=== PATIENT | female | born 2005 | race Caucasian/White ===

== ENCOUNTER 2025-07-16 17:04 | Emergency (ER) | payer SELFPAY ==
[2025-07-16 17:08] VITALS: BP 101/69; PULSE 109; TEMP 37.7; O2SAT 99; BMI 21.6
--- NOTE | 2025-07-16 17:29 | ED.GENADUL1 ---
HPI HPI - General Adult General Chief complaint: Abdominal Pain Stated complaint: Abdominal pain Time Seen by Provider: 07/16/25 17:12 Source: patient Mode of arrival: walk-in Limitations: no limitations History of Present Illness HPI narrative: Patient is a 20-year-old female that presents to the emergency department with complaints of bilateral anterior groin/thigh pain that started today. She denies any trauma. The pain has been constant and she does report some chills at home. She has also had upper respiratory symptoms that started yesterday including sore throat, cough, nasal congestion but denies nausea, vomiting, or diarrhea.. She notes that she has had a right inguinal hernia since she was young that has recently started to be painful. She did feel some pain come from her back to the front of her thighs once today. She denies history of back issues, surgery, or kidney stones. She denies any urinary symptoms including dysuria, frequency, urgency, or retention. She is unsure when her last menstrual cycle was, her periods are irregular. She is not on control. She denies any vaginal discharge, bleeding, or known . Related Data Home Medications ?Medication ?Instructions ?Recorded ?Confirmed No Known Home Medications 07/16/25 07/16/25 Allergies Allergy/AdvReac Type Severity Reaction Status Date / Time No Known Drug Allergies Allergy Verified 07/16/25 17:08 Opioid HPI Opioid Management Most Recent Opioid Data: Last OCT Pain Assessment Today, 17:41 Review of Systems ROS Status of ROS 10 or more systems reviewed and unremarkable except as noted in history and below PFSH PFSH Social History Little interest or pleasure in doing things: not at all Feeling down, depressed, or hopeless: not at all Exam Narrative Exam Narrative: General: No distress, age-appropriate Skin: Warm, dry, no pallor. No rash. Head: Normocephalic, atraumatic. Neck: Supple, non-tender. Eye: Pupils are equal, round and EOMI. No scleral icterus. Ears, Nose, Mouth, and Throat: TMs clear BL. No nasal mucosal hypertrophy. Oral mucosa is moist, mild posterior oropharynx erythema, uvula is mid-line, no tonsillar exudates. Cardiovascular: Regular Rate and Rhythm without murmur, gallop or rub. Respiratory: No accessory muscle use or respiratory distress. Lungs are clear to auscultation, no wheezing, rales or rhonchi Chest Wall: no tenderness Back: No midline thoracic or lumbar vertebral tenderness. Musculoskeletal: Full ROM of all extremities, no calf or popliteal tenderness GI: Abdomen is soft, non-distended, non tender to palpation. No inguinal hernia identified, no inguinal erythema or warmth. No masses appreciated. No rebound, guarding, or rigidity noted. Neurological: A&O x4. No cranial nerve dysfunction observed. No truncal ataxia. Moves all extremities. Sensation intact. Psychiatric: Cooperative and interactive. Normal mood and affect. Constitutional Vital Signs, click to edit/add: Last Vital Signs Temp 100 F 07/16/25 17:08 Pulse 109 H 07/16/25 17:08 Resp 16 07/16/25 17:08 BP 101/69 07/16/25 17:08 Pulse Ox 99 07/16/25 17:08 O2 Del Method Room Air 07/16/25 17:08 Documenting provider has reviewed patient's vital signs: yes Course Vital Signs Vital signs: Vital Signs Temperature 100 F 07/16/25 17:08 Pulse Rate 109 H 07/16/25 17:08 Respiratory Rate 16 07/16/25 17:08 Blood Pressure 101/69 07/16/25 17:08 Pulse Oximetry 99 07/16/25 17:08 Oxygen Delivery Method Room Air 07/16/25 17:08 Temperature 100 F 07/16/25 17:08 Pulse Rate 109 H 07/16/25 17:08 Respiratory Rate 16 07/16/25 17:08 Blood Pressure 101/69 07/16/25 17:08 Pulse Oximetry 99 07/16/25 17:08 Oxygen Delivery Method Room Air 07/16/25 17:08 Medical Decision Making [facility] Narrative Medical decision making narrative: The patient is a 20-year-old female who presented with acute bilateral anterior thigh/groin pain, mild fever, and recent upper respiratory symptoms. On exam, the pain was non-reproducible, and no inguinal hernia or other focal findings were noted. Labs were notable for mild hypokalemia (K 3.3) and significant ketonuria (>80), but CBC, CMP otherwise unremarkable, and infectious workup including COVID, influenza, strep A, urinalysis, and HCG were negative. Given the absence of leukocytosis, normal vital signs apart from mild tachycardia and low-grade fever, and non-focal exam, acute infection or surgical pathology was deemed unlikely. Imaging was considered; however, because the pain was not reproducible on exam and there were no focal findings, imaging was deferred. The patient?s symptoms are most consistent with viral or metabolic myalgias in the setting of mild dehydration/ketosis. She was treated symptomatically with 30 mg IV ketorolac for pain and 1000 mg acetaminophen for fever with improvement, tolerated oral intake, and was hemodynamically stable. She was discharged with instructions for oral hydration, analgesia as needed, and return precautions for worsening pain, fever, or new focal findings. I also provided her with Dr Abad conway with General Surgery on her discharge packet as patient requested referral as she has not seen a surgeon in [facility] for her inguinal hernia. Differential Diagnosis Differential Diagnosis: Pregancy, Viral myositis, Referred pain Lab Data Lab results reviewed: Yes I reviewed the patient's lab results Labs: Lab Results 07/16/25 07/16/25 07/16/25 Range/Units 15:25 16:31 17:31 WBC 4.7 (4.0-11.0) 10^3/uL RBC 4.77 (4.20-5.40) 10^6/uL Hgb 13.9 (12.0-16.0) g/dL Hct 40.8 (36.0-48.0) % MCV 85.5 (81.0-99.0) fL MCH 29.1 (26.7-34.0) pg MCHC 34.1 (29.9-35.2) g/dL RDW 12.3 (11.0-15.0) % Plt Count 179 (150-450) 10^3/uL MPV 10.3 (9.5-13.5) fL Seg Neuts % (Manual) 80.0 H (43.0-75.0) Band Neutrophils % 1.0 (0-5) % Lymphocytes % (Manual) 8.0 L (20.5-60.0) % Monocytes % (Manual) 10.0 (1.7-12.0) % Eosinophils % (Manual) 0.0 L (0.9-7.0) % Basophils % (Manual) 1.0 (0.2-2.0) % Neutrophils # (Manual) 3.76 (1.4-6.5) 10^3/uL Band Neutrophils # 0.0 (0.0-0.3) 10^3/uL Lymphocytes # (Manual) 0.37 L (1.20-3.80) 10^3/uL Monocytes # (Manual) 0.47 (0.30-0.80) 10^3/uL Eosinophils # (Manual) 0.00 (0.00-0.70) 10^3/uL Basophils # (Manual) 0.04 (0.00-0.10) 10^3/uL Sodium 138 (136-145) mmol/L Potassium 3.3 L (3.5-5.1) mmol/L Chloride 100 (98-107) mmol/L Carbon Dioxide 23.8 (21.0-32.0) mmol/L Anion Gap 17.5 BUN 10.0 (7.0-18.0) mg/dL Creatinine 0.78 (0.55-1.02) mg/dL Est GFR ( Amer) >60 (>=60 mL/min/1.73m^2) Est GFR (Non-Af Amer) >60 (>=60 mL/min/1.73m^2) BUN/Creatinine Ratio 12.8 Glucose 123 H (74-106) mg/dL Calcium 9.7 (8.5-10.1) mg/dL Serum HCG, Qual Negative (NEGATIVE) Urine Color Yellow (YELLOW) Urine Clarity Clear (CLEAR) Urine pH 6.0 (5.0-9.0) Ur Specific [place] 1.025 (1.005-1.025) Urine Protein Trace (NEG/TRACE) mg/dL Urine Glucose (UA) Negative (NEGATIVE) mg/dL Urine Ketones >=80 A (NEGATIVE) mg/dL Urine Occult Blood Negative (NEGATIVE) Urine Nitrite Negative (NEGATIVE) Urine Bilirubin Negative (NEGATIVE) Urine Urobilinogen 0.2 (0.2-1.0) EU/dL Ur Leukocyte Esterase Negative (NEGATIVE) Influenza Type A Ag Negative Influenza Type B Ag Negative SARS-CoV-2 Ag (CV2AG) Negative (NEGATIVE) Streptococcus Screen Negative Discharge Plan Discharge Chief Complaint: Abdominal Pain Clinical Impression: Viral myositis Patient Disposition: Home, Self-Care Time of Disposition Decision: 18:05 Condition: Good Mode of Transportation: Private Vehicle Prescriptions / Home Meds: No Action No Known Home Medications Print Language: Vietnamese Instructions: Musculoskeletal Pain (ED) Referrals: LYNNE MCGRATH V [Physician, General Surgery] - 1-2 weeks Referral Note: Call for follow up for your Inguinal Hernia. Physician,Non-Staff, MD [Primary Care Provider] - 1 week Discharge Date/Time: 07/16/25 18:33
[2025-07-16 17:40] LABS: Hematocrit 40.8 % (36.0-48.0); Hemoglobin 13.9 g/dL (12.0-16.0); Mean Corpuscular HGB Conc 34.1 g/dL (29.9-35.2); Mean Corpuscular Hemoglobin 29.1 pg (26.7-34.0); Mean Corpuscular Volume 85.5 fL (81.0-99.0); Platelet Count 179 10^3/uL (150-450); Red Blood Count 4.77 10^6/uL (4.20-5.40); White Blood Count 4.7 10^3/uL (4.0-11.0)
[2025-07-16] MEDS: KETOROLAC TROMETHAMINE 30 MG/ML VIAL IVP (17:41)
[2025-07-16 17:46] LABS: Glucose Urine UA NEGATIVE (NEGATIVE)
[2025-07-16 17:49] LABS: Anion Gap 17.5; Blood Urea Nitrogen 10.0 mg/dL (7.0-18.0); Calcium 9.7 mg/dL (8.5-10.1); Carbon Dioxide 23.8 mmol/L (21.0-32.0); Chloride 100 mmol/L (98-107); Estimated GFR (African America >60 (>=60 mL/min/1.73m^2); Estimated GFR (Non-African Ame >60 (>=60 mL/min/1.73m^2); Glucose 123 mg/dL (74-106); Potassium 3.3 mmol/L (3.5-5.1); Sodium 138 mmol/L (136-145)
[2025-07-16 17:52] LABS: SARS-CoV-2 Ag NEGATIVE (NEGATIVE)
--- OUTSIDE RECORDS SUMMARY | 2025-07-16 17:52 | XMS_ITS | Clinical Summary ---
Author Organization [facility] tem Address [id number] [place] [address] Care Team Providers Care Elevator Constructor Supervisor Name Role Phone Unavailable Primary Care Provider Unavailabl e Allergies No known active allergies Medications MedicationSigDispense QuantityRefillsLast FilledStart DateEnd DateStatus trimethoprim-polymyxin B (POLYTRIM) 10,000 unit- 1 mg/mL drops Indications:Chalazion of both eyesInstill 1 drop into both eyes QID x 7 days 10 mL 03/29/2019Active Additional Information Patient not taking.Reported on 12/25/2024 medroxyPROGESTERone (DEPO-PROVERA) 150 mg/mL injection 1Active Active Problems ProblemNoted DateDiagnosed DateMyopia of both eyes03/29/2019 Encounters DateTypeDepartmentCare HnbvEtjhoqrkrhm83/10/2025 3:50 PM EST - 06/12/2025 5:53 PM ESTEmergency [facility] [address] [place] [id number] Discharge Disposition: Left Without Bganpuddt67/10/2025Travelfrom Last 3 Months Immunizations ImmunizationAdministration DatesNext AfaYOmA0404/07/2007,09/30/2006,2005, 2005HPV Yhwqpprnuatr67/26/2018,05/25/2017,03/25/2017HPV9009/28/2017, 05/25/2017,03/25/2017Hepatitis B009/30/2006,2005,2005HiB04/07/2007, 09/30/2006,2005,2005IPV03/25/2016,09/30/2006,2005,2005 Influenza LAIV (Nasal)05/18/2012Influenza, Injectable, quadrivalent (PF) 11/16/2018,05/25/2017Influenza, Qurzvwptfaa79/23/2017,10/06/2013MMR04/24/2010, 09/30/2006Meningococcal Mhcfrytye06/23/2017Meningococcal BZD8P6603/25/2017 Pneumococcal Affdzoifh22/05/2007,09/30/2006,2005,2005Tdap03/25/2017 Vtusivdml23/22/2010 Family History Medical HistoryRelationNameCommentsNo Known ProblemsBrotherNo Known Problems FatherNo Known ProblemsMotherRelationNameStatusCommentsBrotherFatherAliveMother Alive Social History Tobacco UseTypesPacks/DayYears UsedDateSmoking Tobacco: Some Days Vaping/E-cigarettesSmokeless Tobacco: Never Tobacco Cessation:Ready to Q uit: Not Asked; Counseling Given: Not Answered Alcohol UseStandard Drinks/WeekCommentsNo0 (1 standard drink = 0.6 oz pure alcohol)PHQ-2AnswerDate RecordedTotal Kkzqj4381ChildcareAnswerDate AecxalkpCruxmpzdvEvyzdcv95/10/2019EmploymentAnswerDate RecordedEmploymentUnknown 01/10/2019Hunger ScreeningAnswerDate RecordedWithin the past 12 months we worried whether our food would run out before we got money to buy more.Never True06/12/2025Within the past 12 months the food we bought just didn't last and we didn't have money to get more.Never True06/12/2025Purpose - LifeAnswerDate RecordedPurpose and direction in dqkgQsxcylq64/10/2021CommentsNoSex and Gender InformationValueDate RecordedSex Assigned at BirthNot on fileLegal Sex Pdyuls6703/06/2015 2:58 PM EDTGender IdentityNot on fileSexual OrientationNot on file Last Filed Vital Signs Vital SignReadingTime TakenCommentsBlood Czkwzuue727/7811 4:05 PM EST Kvahs7795/05/2025 4:05 PM GDZOmaoxpqhewl28 ??C (98.6 ??F)06/12/2025 4:05 PM EST Respiratory Uwkb510408/12/2024 4:05 PM ESTOxygen Gwgfqubrfd55%06/12/2025 4:05 PM ESTInhaled Oxygen Concentration--Iughag06.2 kg (135 lb)06/12/2025 4:05 PM EST Kmoufk763.5 cm (5' 2 )06/12/2025 4:05 PM ESTBody Mass Index24.6906/12/2025 4:05 PM EST Plan of Treatment Health MaintenanceDue DateLast DoneCommentsTobacco Ieshmxuliz2005 Depression Hnrrvityi96/17/2017Influenza Wxtkehz95/, 05/25/2017, 05/25/2017, Additional history existsTobacco Qqdhribvs69/dult BMI Fbcvesgny08DTaP,Tdap and Td Vaccines (6 - Td or Tdap) , 04/07/2007, 09/30/2006, Additional history exists Medical Devices Not on file
--- OUTSIDE RECORDS SUMMARY | 2025-07-16 17:52 | XMS_ITS | Patient Health Record ---
Author Organization [facility] [place] Address [address] [place] [address] Care Team Providers Care Hot End Operator Name Role Phone Beena Marlow DO Primary Care Provider Betty vailable Reason For Referral No Information Plan Of Treatment No Information
[2025-07-16 18:02] LABS: Band Neutrophils Absolute 0.0 10^3/uL (0.0-0.3); Basophils Abs Manual 0.04 10^3/uL (0.00-0.10); Basophils Percent Manual 1.0 % (0.2-2.0); Eosinophils Absolute Manual 0.00 10^3/uL (0.00-0.70); Eosinophils Percent Manual 0.0 % (0.9-7.0); Lymphocytes Absolute Manual 0.37 10^3/uL (1.20-3.80); Lymphocytes Percent Manual 8.0 % (20.5-60.0); Monocytes Absolute Manual 0.47 10^3/uL (0.30-0.80); Monocytes Percent Manual 10.0 % (1.7-12.0); Segmented Neut Absolute Manual 3.76 10^3/uL (1.4-6.5); Segmented Neutrophils % Manual 80.0 (43.0-75.0)
[2025-07-16] MEDS: ACETAMINOPHEN 500 MG TABLET 1000 MG PO (18:30)
== END 2025-07-16 18:33 | disposition home or self-care (01) ==
PROVIDERS: Physician Assistant; Emergency Provider Emergency Medicine
DX: M60.80 Other myositis, unspecified site (principal); R50.9 Fever, unspecified
CPT/HCPCS: 36415; 80048; 81003; 84703; 85007; 85027; 87070; 87804; 87811; 87880; 96374; 99284; J1885